=== PATIENT | female | born 2005 | race Caucasian/White ===

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

== ENCOUNTER 2023-06-05 08:55 | Emergency (ER) | payer OTHER ==
[~2023-06-05] VITALS: Ht 167.6 cm; Wt 84.3 kg
[2023-06-05 08:56] VITALS: TEMP 99.2
[2023-06-05] MEDS ORDERED: ZOLO25TA (09:09)
[2023-06-05] MEDS ORDERED: TOPI25TA10 (09:09)
[2023-06-05] MEDS ORDERED: ZOLO50TA (09:09)
[2023-06-05] MEDS ORDERED: ONDANSETRON 4MG ORAL DISINTEGRATING TAB PO ONE (10:05)
[2023-06-05 11:01] VITALS: BP 113/73; O2SAT 99
[2023-06-05] MEDS ORDERED: ONDA4TAB6 PO (11:32)
== END 2023-06-05 11:42 | disposition home or self-care (01) ==
LOC: M ED 08:55
DX: J20.5 Acute bronchitis due to respiratory syncytial virus (principal); F17.290 Nicotine dependence, other tobacco product, uncomplicated; Z88.0 Allergy status to penicillin; Z88.1 Allergy status to other antibiotic agents